=== PATIENT | male | born 1965 | race Native Hawaiian/Other Pacific Islander ===

== ENCOUNTER 2022-03-05 15:00 | Emergency (ER) | payer OTHER ==
[~2022-03-05] VITALS: Ht 167.6 cm; Wt 74.4 kg
[2022-03-05 15:00] VITALS: BP 145/83; TEMP 99.3
[2022-03-05 15:39] LABS: PLATELET COUNT 315 K/uL (142-355)
[2022-03-05 15:46] LABS: POTASSIUM 4.4 mmol/L (3.6-5.2)
[2022-03-05] MEDS ORDERED: BENZ1TAB43 PO (16:35)
[2022-03-05] MEDS ORDERED: BENZTROPINE2 MG PO (16:36)
[2022-03-05] MEDS ORDERED: CELEXA10 MG PO (16:38)
[2022-03-05] MEDS ORDERED: LEVO-T25 MCG PO (16:39)
[2022-03-05] MEDS ORDERED: NUPLAZID34 MG PO (16:40)
[2022-03-05] MEDS ORDERED: DULCOLAX SS100 MG PO (16:41)
[2022-03-05] MEDS ORDERED: RISP0.25 PO (16:42)
[2022-03-05] MEDS ORDERED: DIVA125C PO (16:44)
[2022-03-05] MEDS ORDERED: TYLENOL325 MG PO (16:46)
[2022-03-05] MEDS ORDERED: GERI-LANTA PO (16:47)
== END 2022-03-05 16:04 | disposition still patient (30) ==
LOC: ED 15:00
PROVIDERS: Emergency Medicine
DX: F20.0 Paranoid schizophrenia (principal); E87.1 Hypo-osmolality and hyponatremia; Z11.52 Encounter for screening for COVID-19; Z04.6 Encounter for general psychiatric examination, requested by authority
CPT/HCPCS: 80053; 85027; 87635; 93005; 99283; U0003

== ENCOUNTER 2022-05-12 11:03 | Emergency (ER) | payer OTHER ==
[~2022-05-12] VITALS: Ht 167.6 cm; Wt 73.0 kg
[~2022-05-12 11:03] MED LIST: ACET-206 PO; BENZ1TAB43 PO; BENZTROPINE2 MG PO; BLOOMIS59 PO; CELEXA10 MG PO; DIVA125C PO; DIVALPROEX250 MG PO; DOCU100C10 PO; DULCOLAX SS100 MG PO; EUTHYROX75 MCG PO; LEVO0.0529 PO; LORA0.5T17 PO; LORA2INJ21 IM; MAGNSUS68 PO; NUPLAZID34 MG PO; OLAN10INJ IM; OLAN2.5T2 PO; RISP0.25 PO; SIME80CH32 PO; TYLENOL325 MG PO
[2022-05-12 11:06] VITALS: BP 134/74; TEMP 97.6
[2022-05-12 11:28] LABS: PLATELET COUNT 366 K/uL (142-355)
[2022-05-12 11:36] LABS: POTASSIUM 4.1 mmol/L (3.6-5.2)
[2022-05-12] MEDS ORDERED: TRAZ50TA36 PO (13:53)
[2022-05-12] MEDS ORDERED: LORA0.5T17 PO (13:54)
[2022-05-12] MEDS ORDERED: DIVALPROEX250 MG PO (13:56)
[2022-05-12] MEDS ORDERED: ZYPREXA ZYDI5 MG PO (13:57)
[2022-05-12] MEDS ORDERED: [UNRECOGNIZED DRUG - OTHER] PO (14:02)
== END 2022-05-12 12:53 | disposition still patient (30) ==
LOC: ED 11:03
PROVIDERS: Emergency Medicine
DX: R46.89 Other symptoms and signs involving appearance and behavior (principal); I10 Essential (primary) hypertension; Z11.52 Encounter for screening for COVID-19; Z04.6 Encounter for general psychiatric examination, requested by authority
CPT/HCPCS: 80053; 85027; 87635; 93005; 99283; U0003

== ENCOUNTER 2022-07-13 18:14 | Emergency (ER) | payer OTHER ==
[~2022-07-13] VITALS: Ht 157.5 cm; Wt 75.3 kg
[~2022-07-13 18:14] MED LIST changes: +DIVALPROEX500 MG PO; +LEVO0.0723 PO; +OLANZAPINE10 MG PO; +OLANZAPINE5 MG PO; +TRAZ50TA36 PO; +ZYPREXA ZYDI5 MG PO; +[UNRECOGNIZED DRUG - OTHER] PO
[2022-07-13 18:20] VITALS: BP 126/76; TEMP 98
[2022-07-13 18:37] LABS: PLATELET COUNT 276 K/uL (142-355)
[2022-07-13 18:58] LABS: POTASSIUM 3.9 mmol/L (3.6-5.2)
[2022-07-13] MEDS ORDERED: DIVALPROEX500 M1 PO (21:52)
[2022-07-13] MEDS ORDERED: DIVALPROEX250 MG PO (21:52)
[2022-07-13] MEDS ORDERED: ZYPREXA ZYDI5 MG PO (21:54)
[2022-07-13] MEDS ORDERED: SIME80CH32 PO (21:55)
[2022-07-13] MEDS ORDERED: ZYPREXA ZYDI10 MG PO (21:56)
== END 2022-07-13 20:18 | disposition still patient (30) ==
LOC: ED 18:14
PROVIDERS: Internal Medicine
DX: R45.6 Violent behavior (principal)
CPT/HCPCS: 36415; 80053; 85027; 87635; 93005; 99283; U0003